=== PATIENT | female | born 1980 | race Caucasian/White ===

== ENCOUNTER 2017-10-15 14:05 | Emergency (ER) | payer OTHER ==
[~2017-10-15] VITALS: Ht 162.6 cm; Wt 61.2 kg
[2017-10-15 14:26] VITALS: Ht 162.6 cm; Wt 61.2 kg
[2017-10-15 15:08] VITALS: BP 109/42
== END 2017-10-15 15:08 | disposition home or self-care (01) ==
LOC: ED 14:05
DX: B34.9 Viral infection, unspecified (principal)